=== PATIENT | female | born 1985 | race Caucasian/White ===

== ENCOUNTER 2017-01-01 12:15 | Emergency (ER) | payer BC ==
[2017-01-01 14:30] VITALS: BP 128/75
[2017-01-01] MEDS ORDERED: Ondansetron ODT TAB* 4 MG PO ONE (14:59)
[2017-01-01] MEDS ORDERED: NS 0.9% 1000 ML* 1,000 ML IV ONE (15:25)
--- NOTE | 2017-01-01 16:31 | UC ---
Abdominal Pain Female HPI - HPI Summary HPI Summary: 7 days of flu like sx--n/v/d for 3 -4 days decrease urination----family with similr symptoms that have resolved in less time - History of Current Complaint Chief Complaint: UCGeneralIllness Stated Complaint: FLU SYMPTOMS Time Seen by Provider: 01/01/17 14:49 Hx Obtained From: Patient Hx Last Menstrual Period: 12/14/16 ?: No Onset/Duration: Sudden Onset, Lasting Days - 7, Still Present Timing: Constant Severity Initially: Mild Severity Currently: Moderate Pain Intensity: 7 Pain Scale Used: 0-10 Numeric Location: Diffuse Radiates: No Character: Cramping Aggravating Factor(s): Food Alleviating Factor(s): NPO Associated Signs and Symptoms: Positive: Cough, Nausea, Vomiting, Diarrhea Allergies/Adverse Reactions: Allergies Allergy/AdvReac Type Severity Reaction Status Date / Time Cefaclor [From Ceclor] Allergy Unknown Rash Verified 06/15/14 12:16 PMH/Surg Hx/FS Hx/Imm Hx Previously Healthy: Yes Endocrine History Of: Denies: Diabetes, Thyroid Disease Cardiovascular History Of: Denies: Cardiac Disorders, Hypertension Respiratory History Of: Denies: COPD, Asthma GI/ History Of: Denies: Ulcer - Surgical History Surgical History: None Surgery Procedure, Year, and Place: 04/2017-mass removed from abdomen - Family History Known Family History: Positive: None - Social History Occupation: Employed Full-time - [employer] Lives: With Family Alcohol Use: Occasionally Substance Use Type: None Smoking Status (MU): Never Smoked Tobacco Type: Cigarettes Amount Used/How Often: 1/2 ppd Have You Smoked in the Last Year: Yes Cessation Counseling: Counseled 3+Min - 10 Min Review of Systems Constitutional: Fatigue Skin: Negative Eyes: Negative ENT: Negative Respiratory: Cough Cardiovascular: Negative Gastrointestinal: Abdominal Pain, Vomiting, Diarrhea Genitourinary: Negative Motor: Negative Neurovascular: Negative Musculoskeletal: Negative Neurological: Negative Psychological: Negative All Other Systems Reviewed And Are Negative: Yes Physical Exam Triage Information Reviewed: Yes Appearance: Well-Nourished, Ill-Appearing - mild, Pain Distress - mild Vital Signs: Initial Vital Signs Temp 98.0 F 01/01/17 14:22 Pulse 85 01/01/17 14:22 Resp 16 01/01/17 14:22 BP 128/75 01/01/17 14:22 Pulse Ox 100 01/01/17 14:22 Vital Signs Reviewed: Yes Eye Exam: Normal Eyes: Positive: Conjunctiva Clear ENT Exam: Normal ENT: Positive: Normal ENT inspection, Hearing grossly normal, TMs normal. Negative: Nasal congestion, Nasal drainage, Tonsillar swelling, Tonsillar exudate, Trismus, Muffled/hoarse voice Dental Exam: Normal Neck exam: Normal Neck: Positive: Supple, Nontender Respiratory Exam: Normal Respiratory: Positive: Chest non-tender, Lungs clear, Normal breath sounds, No respiratory distress, No accessory muscle use Cardiovascular Exam: Normal Cardiovascular: Positive: RRR, No Murmur, Pulses Normal, Brisk Capillary Refill Abdominal Exam: Normal Abdomen Description: Positive: No Organomegaly, Soft, Other: - diffuse discomfort Bowel Sounds: Positive: Present Musculoskeletal Exam: Normal Musculoskeletal: Positive: Strength Intact, ROM Intact, No Edema Neurological Exam: Normal Neurological: Positive: Alert, Muscle Tone Normal Psychological Exam: Normal Psychological: Positive: Normal Response To Family Skin Exam: Normal Re-Evaluation - Re-Evaluation First Eval Change: Improved - feeling much better, taking po fluids well, voided Abd Pain Female Course/Dx - Course Course Of Treatment: follow with pcp in the next 2-3 days, recheck hematuria, zofran clear liquids and advance diet slowly- - Differential Dx/Diagnosis Differential Diagnosis: Diverticulitis, Urinary Tract Infection, Other - hematuria, dehydration, viral illness Provider Diagnoses: hematuria, dehydration, viral illness, acute vomiting and diarrhea Discharge - Discharge Plan Condition: Stable Disposition: HOME Prescriptions: Ondansetron [Zofran Odt] 4 mg PO Q6H PRN #10 tab MDD 4 PRN Reason: Nausea/Vomiting guaiFENesin/CODIEN 100MG-10MG* [Robitussin AC 100Mg-10Mg*] 5 - 10 ml PO Q4H PRN #120 udc MDD 40 PRN Reason: cough Patient Education Materials: Acute Nausea and Vomiting (ED), Acute Diarrhea (ED ), Hematuria (ED), Viral Syndrome (ED), Nutrition Tips for Relief of Diarrhea ( ED) Forms: *Work Release Referrals: [facility] [place] [facility] REFERRAL [Outside] - 2 Days Marialuisa Sumner MD [Primary Care Provider] -
== END 2017-01-01 17:15 | disposition home or self-care (01) ==
LOC: UCCORT 12:15
DX: B34.9 Viral infection, unspecified (principal); R31.9 Hematuria, unspecified; E86.0 Dehydration; R11.2 Nausea with vomiting, unspecified; R19.7 Diarrhea, unspecified; Z88.1 Allergy status to other antibiotic agents
CPT/HCPCS: 81025; 87077; 87086; 87502; 96360; 99212; A9270-GY; G0463

== ENCOUNTER 2018-07-25 08:57 | Emergency (ER) | payer BC ==
--- NOTE | 2018-07-25 10:00 | UC ---
Respiratory Complaint HPI - HPI Summary HPI Summary: Pleasant 33 yo female with progressive cough, chest congestion since Tuesday ( today is ). + subjective fever, not feeling well. No rash. + sound congested, but does not feel sinuses congested perse. No rash. Some nausea ( not sure if d/t cough), some recent loose stool. Sx started as sore throat, which is better now. Reports that she has received influenza vaccine. Does not typically wheeze, albeit rarely with illness, also as a child but grew out of it. - History of Current Complaint Chief Complaint: UCRespiratory Stated Complaint: CHEST CONGESTION Time Seen by Provider: 07/25/18 09:39 Hx Obtained From: Patient Hx Last Menstrual Period: 12/14/16 Pain Intensity: 5 - Allergies/Home Medications Allergies/Adverse Reactions: Allergies Allergy/AdvReac Type Severity Reaction Status Date / Time cefaclor [From [facility]] Allergy Rash Verified 07/25/18 09:08 Home Medications: Home Medications Guaifenesin/Dextromethorphan [Robitussin Cough & Chest 20-400 mg/20Ml] 1 liq PO 07/25/18 [History] PMH/Surg Hx/FS Hx/Imm Hx Previously Healthy: Yes - Surgical History Surgical History: Yes Surgery Procedure, Year, and Place: 04/2017-mass removed from abdomen - Family History Known Family History: Positive: None - Social History Occupation: Employed Full-time Alcohol Use: Rare Substance Use Type: None Smoking Status (MU): Never Smoked Tobacco Type: Cigarettes Amount Used/How Often: 1/2 ppd Have You Smoked in the Last Year: Yes Review of Systems Constitutional: Other - see hpi Skin: Negative Eyes: Other - see hpi ENT: Other - see hpi Respiratory: Cough, Other - see hpi Cardiovascular: Negative Gastrointestinal: Negative Genitourinary: Negative Motor: Negative Neurovascular: Negative Musculoskeletal: Negative Neurological: Negative Psychological: Negative Is Patient Immunocompromised?: No All Other Systems Reviewed And Are Negative: Yes Physical Exam Triage Information Reviewed: Yes Appearance: Well-Nourished - sitting up, looks tired, but NAD Vital Signs: Initial Vital Signs Temp 98.6 F 07/25/18 09:04 Pulse 82 07/25/18 09:04 Resp 18 07/25/18 09:04 BP 119/78 07/25/18 09:04 Pulse Ox 97 07/25/18 09:04 Vital Signs Reviewed: Yes Eye Exam: Normal ENT: Positive: Other - Post pharynx, mild edema, no sores / exudates grossly appreciated. Uvula midline, airway patent. No stridor. Neck exam: Normal Neck: Positive: Supple, Nontender Respiratory Exam: Other Respiratory: Positive: Wheezing, Other: - + insp / exp wheezing all lobes, R>L in intensity Cardiovascular Exam: Normal Cardiovascular: Positive: RRR, Pulses Normal, Brisk Capillary Refill Abdominal Exam: Normal Abdomen Description: Positive: Nontender Musculoskeletal Exam: Normal - gait steady, moves x 4 ext Neurological Exam: Normal - grossly nonfocal Psychological Exam: Normal - conversing easily and appropriately Skin Exam: Normal - no visible or reported rash UC Diagnostic Evaluation - Laboratory O2 Sat by Pulse Oximetry: 97 Respiratory Course/Dx - Course Course Of Treatment: Considered influenza, but > 72 hrs since onset sx. Did have infl vaccine. Offered duoneb, she carefully considered but declined. CXR ordered. Reviewed cxr results with pt. Reviewed need for follow up with pcp re respiratory recheck. Questions as posed answered to the best of my ability. - Differential Dx/Diagnosis Differential Diagnosis/HQI/PQRI: Airway Obstruction Provider Diagnoses: Bronchitis with wheezing. Possible obstructive resp dz Discharge - Sign-Out/Discharge Documenting (check all that apply): Patient Departure All imaging exams completed and their final reports reviewed: Yes - Discharge Plan Condition: Stable Disposition: HOME Prescriptions: Albuterol HFA INHALER* [Ventolin HFA Inhaler*] 1 - 2 puff INH Q4H PRN #1 mdi PRN Reason: Wheezing Azithromyxin YOBANY (NF) [Z-Yobany (Zithromax) 250 mg tabs #6] 2 tab PO .TODAY, THEN 1 DAILY #6 tab predniSONE TAB* [Deltasone 10 MG TAB*] 10 mg PO DAILY #20 tab Patient Education Materials: Acute Bronchitis (ED), Bronchospasm (ED) Forms: *Work Release Referrals: No Primary Care Phys,NOPCP [Primary Care Provider] - Additional Instructions: Please follow up with your primary care physician in the next 1-2 weeks for recheck. Seek medical attention for worse or new problems in the meantime. - Billing Disposition and Condition Condition: STABLE Disposition: Home
--- NOTE | 2018-07-25 10:48 | RAD ---
INDICATION: Cough, RIGHT greater than LEFT chest wheezing. Chest pain. Sensation of fever. COMPARISON: July 05, 2011 TECHNIQUE: Dual energy PA and routine lateral views of the chest were obtained. REPORT: Elevated lung volumes. No focal pulmonary lesion, compelling alveolar consolidation, pleural effusion, pneumothorax. The heart, pulmonary vasculature, and mediastinal contours are unremarkable. Unremarkable soft tissue contours and osseous structures. IMPRESSION: #. Elevated lung volumes suggesting potential obstructive lung disease. #. No evidence for pneumonia.
[2018-07-25 11:08] VITALS: BP 129/67
== END 2018-07-25 11:50 | disposition home or self-care (01) ==
LOC: UCEAST 08:57
DX: J20.9 Acute bronchitis, unspecified (principal); Z88.1 Allergy status to other antibiotic agents
CPT/HCPCS: 71046; 99212; G0463